=== PATIENT | female | born 1930 | race Caucasian/White ===

== ENCOUNTER 2017-05-10 01:44 | Inpatient (IN) | payer MEDICARE, OTHER ==
[2017-05-10] VITALS (36 sets, daily range): BP systolic 70–130; BP diastolic 29–81; Ht 160 cm; Wt 50.4 kg
[~2017-05-10] VITALS: Ht 160 cm; Wt 50.4 kg
--- NOTE | ~2017-05-10 | CN ---
PATIENT NAME:YG DE LA CRUZ MEDICAL RECORD: [id number] : 32 LOCATION:[facility].2307 ADMIT DATE: 05/10/17 ACCOUNT: [id number] CONSULTING PHYSICIAN: RENE ELY MD REFERRING PHYSICIAN: VIOLETTA SIFUENTES MD DATE OF CONSULTATION: 05/10/2017 CHIEF COMPLAINT: Acidosis. HISTORY OF PRESENT ILLNESS: We have been asked to see this patient due to acidosis and to determine if the patient has an intraabdominal source of sepsis or acidosis. The information is limited on this patient. I spoke to the patient's grandson who has not been near her recently. Reportedly, the patient's son is going to come to the hospital and he may have additional information that is pertinent regarding her recent problems. I saw the patient last evening and placed a right groin central venous catheter. I have just placed a chest tube in this patient due to a pneumothorax which is likely iatrogenic. The patient has an elevated troponin as well as elevated lactic acid. We are going to obtain a CT scan. We are going to have do this without IV contrast due to the patient's acute renal failure. The patient is unable to provide me with any information. I am really unable to assess her abdomen other than slightly distended and tympanitic. It is not tight. The patient is sedated and being mechanically ventilated and for this reason, she cannot answer any questions, so it is uncertain if there are any aggravating or alleviating factors. This is a consultation note addendum. For the typed portion of the consult note, please see the chart. This will include the past medical and surgical history, allergies, social history, current medications as well as family history. REVIEW OF SYSTEMS: Unobtainable from this patient. PHYSICAL EXAMINATION: GENERAL: The entire physical examination was performed in the presence of a female nurse. VITAL SIGNS: Stable. The patient appears acutely ill. Does not appear chronically ill. EARS: External ears appear normal. EYES: Extraocular movements were intact at least earlier in the evening or in the morning when I saw the patient. NECK: Trachea is midline. CHEST: Intercostal retractions are present, rhonchi bilaterally. ABDOMEN: Mildly distended, tympanitic, not tight, unable to really assess for tenderness or for peritoneal signs. EXTREMITIES: No peripheral cyanosis. INTEGUMENT: There is an intertriginous rash. BACK: Mild thoracic kyphosis is present. PSYCHIATRIC: Unable to assess due to sedation. NEUROLOGIC: Unable to assess due to sedation. LYMPHATICS: No lymphangitic streaking of the exposed extremities. IMPRESSION: Ventilatory failure, acidosis, elevated troponin. CONSULT REPORT [id number] YG DE LA CRUZ PLAN: I am waiting on a CT scan to be performed without IV contrast. I have discussed this case personally with Dr. Conroy as well as with the patient's nurse. TRANSINT:[id number] Voice Confirmation ID: [id number] DOCUMENT ID: [id number] RENE ELY MD at 1212 CC: VENU GARCIA MD and JESUS CONROY MD [id number] DICTATION DATE: 05/10/17 1349 ACOUSTIC ENGINEER: 05/10/17 1437 DIS IN 05/11/17 [facility] [address] [place] [address]
--- NOTE | ~2017-05-10 | CN ---
PATIENT NAME:YG DE LA CRUZ MEDICAL RECORD: [id number] : 32 LOCATION:[id number] ADMIT DATE: 05/10/17 ACCOUNT: [id number] CONSULTING PHYSICIAN: YOSEF PAINTING MD REFERRING PHYSICIAN: VIOLETTA SIFUENTES MD DATE OF CONSULTATION: 05/10/2017 CARDIOLOGY CONSULTATION REFERRING PHYSICIAN: Jerry correspondence school instructor. REASON FOR CONSULTATION: 1. Non-Q-wave myocardial infarction. 2. Septic shock. HISTORY OF PRESENT ILLNESS: This is an 86-year-old female patient with a history of diabetes, thyroid, hypertension and peripheral vascular disease. She presented to the Emergency Department with nausea, vomiting and abdominal pain. According to her friend who brought here in, she has been having pain on and off for greater than a month with some weight loss. Initial evaluation in the ER, she was found to have severe metabolic acidosis as well as leukocytosis and MC. A central line was started and she was placed on IV pressors with Levophed and aggressive IV hydration is currently underway. Her initial troponin is greater than 4 with a 12-lead EKG showing normal sinus rhythm with ST segment changes in the lateral limb leads. For these reasons, we have been consulted. PAST MEDICAL HISTORY: Per HPI. REVIEW OF SYSTEMS: Review of systems was obtained from the medical records, the patient is unable to give a review of systems due to her level of consciousness. PHYSICAL EXAMINATION: GENERAL: This is a critically ill-appearing female who is on a nonrebreather currently and they are in the process of getting ready to intubate and place on mechanical ventilation. VITAL SIGNS: Temperature is 97.9, heart rate is 82 with a respiratory rate of 14, blood pressure is 131/51, on pressors. HEENT: Head is normocephalic. Pupils are equal and reactive. Extraocular muscles are intact. NECK: Supple. Trachea is midline. There is no JVD or carotid bruits. CARDIOVASCULAR: Reveals a regular rate and rhythm without murmur, gallop or rub. SKIN: Dry to touch. NEUROLOGIC: She is lethargic. LABORATORY DATA: White count is 19.3 with an H&H of 12.2 and 38.2, platelets of 72. Sodium is 135 with potassium of 4.8, chloride is 96 with CO2 of 21.5, BUN is 33 with creatinine of 2.2. Lactic acid is 8, calcium is 9.2, phosphorous 3.4, magnesium 3.4. AST is 93. CK is 51.6 with troponin of 4.52. ASSESSMENT AND PLAN: 1. Non-Q-wave myocardial infarction. The patient is hemodynamically unstable at this point to go for a left heart catheterization. We will treat with medical management. Once stable, we will consider a diagnostic left heart catheterization. CONSULT REPORT [id number] YG DE LA CRUZ 2. Septic shock. She is on pressors. 3. Acute kidney injury. 4. Acute metabolic acidosis. 5. Abdominal pain. RECOMMENDATIONS: From a cardiovascular standpoint, we will treat with medical management due to the patient being hemodynamically unstable. We will check a 2D echo to assess her LV function and valvular integrity. Further recommendations will depend on the patient's clinical course. Thank you for the consultation. TRANSINT:[id number] Voice Confirmation ID: [id number] DOCUMENT ID: [id number] Dictated By: DEVIKA GUZMAN I have interviewed/examined the above patient and agree with these documented findings. YOSEF PAINTING MD at 1025 at 1456 CC: [id number] DICTATION DATE: 05/10/17 0855 SILVERING DEPARTMENT SUPERVISOR: 05/10/17 1307 DIS IN 05/11/17 [place] [id number] [place] [address]
--- NOTE | ~2017-05-10 | OP ---
PATIENT NAME: YG DE LA CRUZ MEDICAL RECORD: [id number] :32 LOCATION:[facility] D.2307 ADMISSION DATE:05/10/17 SURGEON: RICK ELY MD DATE OF OPERATION: 05/10/2017 DATE OF OPERATION: 05/10/2017 PREOPERATIVE DIAGNOSIS: Right pneumothorax. POSTOPERATIVE DIAGNOSES: Right pneumothorax with pleural effusion. PROCEDURE: Right 28-Omani chest tube placement. SURGEON: Rick Ely MD BOTTLE PACKER: None. BLOOD LOSS: Minimal. ANESTHESIA: General. COMPLICATIONS: None. I elected to perform this procedure in the operating room rather at the bedside in order to maximize sterility. OPERATIVE COURSE: The patient was conveyed to the operating room urgently on 05/10/2017. General anesthesia was induced by the anesthesia staff. The right chest was sterilely prepped and draped. A transverse incision was accomplished approximately at the level of the 8th intercostal space in the mid axillary line. I dissected up over a rib with my finger. I then entered the right hemithorax with a hemostat. I was able to insert my gloved sterile finger into the right hemithorax and I ensured that there was ample room for insertion of the chest tube. A 28-Omani chest tube was then advanced to 18 cm. It was sutured in place with a 2-0 nylon. It was attached to a suction canister and then a sterile dressing was applied. The patient was then conveyed to the intensive care unit and mechanical ventilation via an endotracheal tube continued. TRANSINT:[id number] Voice Confirmation ID: [id number] DOCUMENT ID: [id number] RICK ELY MD at 1212 CC: [id number] DICTATION DATE: 05/10/17 1346 EARLY MORNING: 05/10/17 1415 DIS IN 05/11/17 [place] [id number]
--- NOTE | ~2017-05-10 | EC ---
PATIENT:YG DE LA CRUZ DATE OF SERVICE: 05/10/17 SEX: F MEDICAL RECORD: [id number] DATE OF : 32 LOCATION:[facility] D230 AGE OF PATIENT: 86 ADMISSION DATE: 05/10/17 REFERRING PHYSICIAN: INTERPRETING PHYSICIAN: YOSEF CASTRO MD ECHOCARDIOGRAM REPORT ECHO CHARGES 4 ECHO COMPLETE CLINICAL DIAGNOSIS: ELEVATED TROPONIN/CHF ECHOCARDIOGRAPHIC MEASUREMENTS (adult normal given) AC root (d.<3.7cm) 2.7 cm LV Septum d (<1.2 cm> 1.4 cm Valve Excursion 1.3 cm LV Septum (systole) 1.7 cm Left Atria (s.<4.0cm> 3.8 cm LVPW d(<1.2cm) 1.2 cm RV (d.<2.3cm) 1.6 cm LVPW (sytole) 1.7 cm LV diastole(<5.6CM) 4.0 cm MV E-F(>70mm/sec) cm LV systole 2.9 cm LVOT Diameter 1.5 cm MV exc.(>10mm) cm Est.ejection fraction (50-75%) % Pericardial Effusion N DOPPLER: LVIT cm/sec A 62.0 cm/sec E 90.0 cm/sec LA cm/sec RVSP 70.0 mmHg LVOT 74.0 cm/sec AOP1/2T 381.0m/s Asc. Ao 175 cm/sec RVOT 49.0 cm/sec RA cm/sec PA 60.0 cm/sec AV Gradient Peak 12.3 mmHg AV Mean 4.8 mmHg AV Area 0.7 cm MV Gradient Peak 3.8 mmHg MV Mean 1.5 mmHg MV Area cm COMMENTS: Steel Shot Header Operator: Larua SANTOSOE Central Supply Technician Supervisor: 1 Dr. Castro TAPE# PACS DATE OF SERVICE: 05/10/2017 PROCEDURE: Echocardiogram. FINDINGS: 1. Left ventricular chamber size is upper limits of normal, left ventricular systolic function is markedly reduced, overall ejection fraction 25%. 2. Left atrium, right atrium, and right ventricle chamber sizes are within normal limits. 3. Valvular structures have normal structure and motion. ECHOCARDIOGRAM REPORT [id number] YG DE LA CRUZ 4. Doppler interrogation reveals mild aortic insufficiency, moderate mitral regurgitation, mild tricuspid regurgitation, no other valvular insufficiency or stenosis. Pulmonary systolic pressure is markedly elevated estimated at 70 mmHg. 5. No evidence of pericardial effusion or left ventricular thrombus. TRANSINT:[id number] Voice Confirmation ID: [id number] DOCUMENT ID: [id number] 05/12/2017 Edited to correct date of service, dmm. YOSEF CASTRO MD at 1759 CC: [id number] DICTATION DATE: 05/11/17 1212 FURNACE UTILITY OPERATOR: 05/11/17 1218 DIS IN 05/11/17 [place] [id number] [place] [address]
--- NOTE | ~2017-05-10 | OP ---
PATIENT NAME: YG DE LA CRUZ MEDICAL RECORD: [id number] :32 LOCATION:[facility] D.2307 ADMISSION DATE:05/10/17 SURGEON: RICK ELY MD DATE OF OPERATION: 05/10/2017 PREOPERATIVE DIAGNOSES: 1. Ventilatory failure. 2. Respiratory distress. 3. Acidosis. 4. Need of venous access with no peripheral access unobtainable. POSTOPERATIVE DIAGNOSES: 1. Ventilatory failure. 2. Respiratory distress. 3. Acidosis. 4. Need of venous access with no peripheral access unobtainable. PROCEDURE: Insertion of right groin triple lumen central venous catheter. SURGEON: Rick Ely MD KNIT GOODS CUTTER HAND: None. BLOOD LOSS: Minimal. ANESTHESIA: Local. COMPLICATIONS: None. INDICATION: I was asked to see this patient emergently. I came in the middle of the night and saw the patient right away. There had been prior attempts at central venous access including at least attempts at the right neck and the right groin. I avoided any attempts at the IJ or subclavian site and instead decided to place a groin line. I interrogated the right groin with hand-held ultrasound and this did reveal a compressible right common femoral vein. DESCRIPTION OF PROCEDURE: The right groin was sterilely prepped and draped. A local anesthetic was used to infiltrate the skin and subcutaneous tissue just inferior to the inguinal crease. I percutaneously accessed the right common femoral vein easily. A guidewire passed easily. A small skin chana was accomplished. A vessel dilator was used to dilate the subcutaneous tract. A 16-cm triple lumen central venous catheter was inserted to the hub. It was sutured in place times 3. All lumens flushed easily and aspirated dark, nonpulsatile blood. A sterile dressing was applied and I told the nursing staff that they could begin using the central venous line immediately. TRANSINT:[id number] Voice Confirmation ID: [id number] DOCUMENT ID: [id number] OPERATIVE REPORT [id number] YG DE LA CRUZ ROBERT MD at 1212 CC: [id number] DICTATION DATE: 05/10/17 1342 HYDRAULIC SPECIALIST: 05/10/17 1408 DIS IN 05/11/17 [place] [id number] [place] [address]
[~2017-05-10 01:44] MED LIST: ASPIRIN81 MG PO; BENICAR HCT 40-1 TA1 PO; CATAPRES0.1 MG PO; FLUNISOLIDE29 MCG NASAL; GLUCOPHAGE500 MG PO; HYDROCODONE-APA1 TAB PO; LEVOXYL100 MCG PO; LEXAPRO10 MG PO; MULTIPLE VITAMI1 TA1 PO; NIFEDIPINE ER60 MG PO; OYSCO 500+D TAB1 TAB PO; PRAVACHOL40 MG PO; PRILOSEC20 MG PO; PULMICORT FLEX90 MCG INH
[2017-05-10 02:36] LABS: HEMATOCRIT 38.2 % (36.0-48.0); HEMOGLOBIN 12.2 g/dL (12-16); RBC 4.01 10x6/uL (4.00-5.40); WBC 19.3 10x3/uL (4.8-10.8)
[2017-05-10 02:37] LABS: BASOPHILS 0.1 % (0-2); EOSINOPHILS 0.1 % (0-7); IMMATURE GRANULOCYTES 1.1 % (0-5); LYMPHOCYTES 9.1 % (15-50); MCH 30.4 pg (26.0-34.0); MCHC 31.9 g/dL (31.0-37.0); MCV 95.3 fL (80.0-100.0); MEAN PLATELET VOLUME 12.9 fL (7.4-10.4); MONOCYTES 2.9 % (2-11); NEUTROPHILS 86.7 % (40-80); RDW 12.7 % (11.5-14.5)
[2017-05-10 02:39] LABS: PLATELET COUNT 72 10x3/uL (130-400)
[2017-05-10 02:52] LABS: ALBUMIN 3.5 g/dL (3.4-5.0); ALKALINE PHOSPHATASE 59 U/L (46-116); ALT (SGPT) 31 U/L (10-68); BILIRUBIN - TOTAL 0.36 mg/dL (0.2-1.3); CALC OSMOLALITY 292 mosm/kg (275-300); CALCIUM 9.2 mg/dL (8.5-10.1); CARBON DIOXIDE 21.5 mmol/L (21.0-32.0); CHLORIDE - SERUM 96 mmol/L (98-107); CREATININE - SERUM 2.2 mg/dL (0.6-1.3); PROTEIN - SERUM 6.9 g/dL (6.4-8.2); SODIUM 135 mmol/L (136-145); UREA NITROGEN 33 mg/dL (7-18); eGFR NON AFRICAN AMERICAN 22 mL/min (90-120)
[2017-05-10 02:53] LABS: GLUCOSE 388 mg/dL (74-106); POTASSIUM - SERUM 4.8 mmol/L (3.5-5.1)
[2017-05-10 03:00] LABS: PLATELET ESTIMATE DECREASED
[2017-05-10 03:12] LABS: CREATINE KINASE 530 UL (21-215); MAGNESIUM - SERUM 3.4 mg/dL (1.8-2.4); PRO BNP 4867 pg/mL (0-450)
[2017-05-10 03:14] LABS: CKMB 51.6 U/L (0.0-3.6); TROPONIN-I 4.523 ng/mL (0.000-0.060)
[2017-05-10 04:57] LABS: APPEARANCE CLOUDY (CLEAR); BILIRUBIN NEGATIVE (NEGATIVE); COLOR YELLOW (YELLOW); GLUCOSE NEGATIVE (NEGATIVE); KETONE NEGATIVE (NEGATIVE); NITRITE NEGATIVE (NEGATIVE); PROTEIN 3+ mg/dL (NEGATIVE); SPECIFIC GRAVITY 1.015 (1.005-1.020); UROBILINOGEN NORMAL (NORMAL)
[2017-05-10 04:58] LABS: BACTERIA MANY /hpf (NONE SEEN); EPITHELIAL CELLS 0-5 /hpf (0-5); RED CELLS - URINE 0-5 /hpf (0-5)
[2017-05-10 09:00] LABS: APTT 33.2 SECONDS (22.8-39.4); INR 1.15 (0.85-1.17); PROTIME 14.3 SECONDS (11.6-15.0)
[2017-05-10 09:08] LABS: ALKALINE PHOSPHATASE 50 U/L (46-116); BILIRUBIN - TOTAL 0.23 mg/dL (0.2-1.3); CALCIUM 7.8 mg/dL (8.5-10.1); CHLORIDE - SERUM 102 mmol/L (98-107); CREATININE - SERUM 2.1 mg/dL (0.6-1.3); PROTEIN - SERUM 5.7 g/dL (6.4-8.2); SODIUM 142 mmol/L (136-145); UREA NITROGEN 39 mg/dL (7-18); eGFR NON AFRICAN AMERICAN 24 mL/min (90-120)
[2017-05-10 09:11] LABS: AMYLASE - SERUM 184 U/L (25-115); LIPASE 613 U/L (73-393); MAGNESIUM - SERUM 3.4 mg/dL (1.8-2.4); PHOSPHOROUS 5.6 mg/dL (2.5-4.9)
[2017-05-10 09:12] LABS: ALT (SGPT) 84 U/L (10-68); CALC OSMOLALITY 294 mosm/kg (275-300); CARBON DIOXIDE 30.1 mmol/L (21.0-32.0); GLUCOSE 153 mg/dL (74-106); POTASSIUM - SERUM 3.8 mmol/L (3.5-5.1)
[2017-05-10 09:15] LABS: HEMATOCRIT 31.2 % (36.0-48.0); HEMOGLOBIN 9.8 g/dL (12-16); MCHC 31.4 g/dL (31.0-37.0); MCV 95.4 fL (80.0-100.0); MEAN PLATELET VOLUME 10.1 fL (7.4-10.4); PLATELET COUNT 238 10x3/uL (130-400); RBC 3.27 10x6/uL (4.00-5.40); RDW 12.7 % (11.5-14.5); WBC 23.1 10x3/uL (4.8-10.8)
[2017-05-10 09:22] LABS: KETONE - SERUM NEGATIVE (NEGATIVE)
[2017-05-10 09:33] LABS: THYROID STIMULATING HORMONE 0.13 uIU/mL (0.36-3.74)
[2017-05-10 09:36] LABS: TROPONIN-I 68.315 ng/mL (0.000-0.060)
[2017-05-10 09:40] LABS: LYMPHOCYTES 9 % (15-50); MONOCYTES 9 % (2-11); NEUTROPHILS 79 % (40-80); PLATELET ESTIMATE NORMAL
[2017-05-10 09:41] LABS: ROULEAUX OCC
[2017-05-10 09:43] LABS: ACANTHOCYTES OCC
[2017-05-11] VITALS (14 sets, daily range): BP systolic 54–80; BP diastolic 26–68
== END 2017-05-11 04:04 | DRG 871 ==
LOC: D.ER 01:44 → D.ICU 02:21
PROVIDERS: Emergency Medicine; Internal Medicine Pulmonary Disease; Surgery
PROC: 0W9930Z Drainage of Right Pleural Cavity with Drainage Device, Percutaneous Approach (ICD-10-PCS; 2017-05-10)
PROC: 0BH17EZ Insertion of Endotracheal Airway into Trachea, Via Natural or Artificial Opening (ICD-10-PCS; 2017-05-10)
PROC: 5A1935Z Respiratory Ventilation, Less than 24 Consecutive Hours (ICD-10-PCS; 2017-05-10)
PROC: 0T9B70Z Drainage of Bladder with Drainage Device, Via Natural or Artificial Opening (ICD-10-PCS; 2017-05-10)
PROC: 06HY33Z Insertion of Infusion Device into Lower Vein, Percutaneous Approach (ICD-10-PCS; principal; 2017-05-10 13:30)
DX: A41.9 Sepsis, unspecified organism (principal); R65.21 Severe sepsis with septic shock; I21.4 Non-ST elevation (NSTEMI) myocardial infarction; N17.0 Acute kidney failure with tubular necrosis; J69.0 Pneumonitis due to inhalation of food and vomit; J96.00 Acute respiratory failure, unspecified whether with hypoxia or hypercapnia; I13.0 Hypertensive heart and chronic kidney disease with heart failure and stage 1 through stage 4 chronic kidney disease, or unspecified chronic kidney disease; I50.22 Chronic systolic (congestive) heart failure; J93.83 Other pneumothorax; J90 Pleural effusion, not elsewhere classified; N39.0 Urinary tract infection, site not specified; E11.22 Type 2 diabetes mellitus with diabetic chronic kidney disease; E11.65 Type 2 diabetes mellitus with hyperglycemia; N18.3 Chronic kidney disease, stage 3 (moderate); E11.21 Type 2 diabetes mellitus with diabetic nephropathy; I73.9 Peripheral vascular disease, unspecified; K21.0 Gastro-esophageal reflux disease with esophagitis; E03.9 Hypothyroidism, unspecified; J44.9 Chronic obstructive pulmonary disease, unspecified; R57.0 Cardiogenic shock; Z86.73 Personal history of transient ischemic attack (TIA), and cerebral infarction without residual deficits; Z87.891 Personal history of nicotine dependence; Z85.118 Personal history of other malignant neoplasm of bronchus and lung